=== PATIENT | female | born 1970 | race Caucasian/White ===

== ENCOUNTER 2019-06-01 13:11 | Emergency (ER) | payer BC ==
[2019-06-01 14:55] LABS: ANION GAP 12.4; CHLORIDE,CL 97 mmol/L (101-111); SODIUM,NA 137 mmol/L (135-145)
[2019-06-01] MEDS ORDERED: Ketorolac 30 MG/ML SDV IM ONE (15:23)
--- NOTE | 2019-06-01 15:25 | EDM.PDOC ---
Scribed by Velma Connell 06/01/19 1525 for Aaron Lyle NP ED HPI GENERAL MEDICAL PROBLEM - General Chief Complaint: Genitourinary Problem Stated Complaint: POSSIBLE KIDNEY INFECTION/STONES Time Seen by Provider: 06/01/19 14:17 Source of Information: Reports: Patient, RN, RN Notes Reviewed History Limitations: Reports: No Limitations - History of Present Illness INITIAL COMMENTS - FREE TEXT/NARRATIVE: Patient is a 48-year-old female who presents to ED with complaints of right flank pain, intermittent fever, nausea and vomiting x1 week. Patient reports a history of kidney stones and neurogenic bladder. She denies any hematuria, urgency, frequency or dysuria. She has been taking Zofran for nausea with relief. Fever is being controlled with Ibuprofen every 6 hours. She reports decrease in appetite due to nausea. She reports shortness of breath with flank pain. Onset: Gradual Duration: Getting Worse Location: Reports: Generalized Quality: Reports: Ache Severity: Moderate Improves with: Reports: None Worsens with: Reports: None Associated Symptoms: Reports: No Other Symptoms - Related Data Allergies Allergy/AdvReac Type Severity Reaction Status Date / Time ceftriaxone [From Rocephin] Allergy Hives Verified 06/01/19 13:54 Sulfa (Sulfonamide Allergy Hives Verified 06/01/19 13:54 Antibiotics) Home Meds: Home Meds DULoxetine HCl [Duloxetine HCl] 100 mg PO DAILY 06/01/19 [History] Levothyroxine Sodium [Synthroid] 100 mcg PO DAILY 06/01/19 [History] Propranolol HCl 40 mg PO DAILY 06/01/19 [History] hydroCHLOROthiazide [Hydrochlorothiazide] 25 mg PO DAILY 06/01/19 [History] Past Medical History HEENT History: Reports: Impaired Vision Cardiovascular History: Reports: Hypertension Musculoskeletal History: Reports: Fibromyalgia Neurological History: Reports: Migraines Psychiatric History: Reports: Depression Endocrine/Metabolic History: Reports: Hypothyroidism - Past Surgical History Female Surgical History: Reports: Hysterectomy, Other (See Below) Other Female Surgeries/Procedures: Bladder sling, mesh was placed- then recalled by FDA. "They were only able to get some of the mesh removed when they sutured up they sewed my nerve ending into the incision." Social & Family History - Tobacco Use Smoking Status *Q: Never Smoker - Caffeine Use Caffeine Use: Reports: Coffee - Recreational Drug Use Recreational Drug Use: No Other Recreational Drug Type: Has a medical marijuana card but has not filled it. ED ROS GENERAL - Review of Systems Review Of Systems: Comprehensive ROS is negative, except as noted in HPI. ED EXAM, RENAL/ - Physical Exam Exam: See Below Exam Limited By: No Limitations General Appearance: Alert, WD/WN, No Apparent Distress Eye Exam: Bilateral Eye: Normal Inspection Ears: Normal External Exam, Normal Canal, Hearing Grossly Normal, Normal TMs Nose: Normal Inspection, Normal Mucosa, No Blood Throat/Mouth: Normal Inspection, Normal Lips, Normal Teeth, Normal Gums, Normal Oropharynx, Normal Voice, No Airway Compromise Head: Atraumatic, Normocephalic Neck: Normal Inspection, Supple, Non-Tender, Full Range of Motion Respiratory/Chest: No Respiratory Distress, Lungs Clear, Normal Breath Sounds, No Accessory Muscle Use, Chest Non-Tender Cardiovascular: Normal Peripheral Pulses, Regular Rate, Rhythm, No Edema, No Gallop, No JVD, No Murmur, No Rub GI/Abdominal: Normal Bowel Sounds, Soft, Other (right CVA tenderness. ) (Female) Exam: Deferred Rectal (Female) Exam: Deferred Back Exam: Normal Inspection, CVA Tenderness (R). No: CVA Tenderness (L) Extremities: Normal Inspection, Normal Range of Motion, Non-Tender, Normal Capillary Refill, No Pedal Edema Neurological: Alert, Oriented, CN II-XII Intact, Normal Cognition, Normal Gait Psychiatric: Normal Affect, Normal Mood Skin Exam: Warm, Dry, Intact, Normal Color, No Rash Lymphatic: No Adenopathy Course - Vital Signs Last Recorded V/S: Last Vital Signs Temp 97.1 F 06/01/19 13:39 Pulse 65 06/01/19 13:39 Resp 18 06/01/19 13:39 BP 111/70 06/01/19 13:39 Pulse Ox 100 06/01/19 13:39 - Orders/Labs/Meds Orders: Active Orders 24 hr Category Date Time Status CULTURE URINE [RM] Stat Lab 06/01/19 13:34 Received Labs: Laboratory Tests 06/01/19 06/01/19 06/01/19 Range/Units 13:34 14:28 14:28 WBC 11.1 H (5.0-10.0) 10^3/uL RBC 4.57 (4.2-5.4) 10^6/uL Hgb 14.0 (12.0-16.0) g/dL Hct 42.2 (37.0-47.0) % MCV 92.3 (80-100) fL MCH 30.6 (27.0-34.0) pg MCHC 33.2 (33.0-35.0) g/dL Plt Count 340 (150-450) 10^3/uL Neut % (Auto) 65.5 (42.2-75.2) % Lymph % (Auto) 22.8 (20.5-50.1) % [place] % (Auto) 9.1 H (2-8) % Eos % (Auto) 2.1 (1.0-3.0) % Baso % (Auto) 0.5 (0.0-1.0) % Sodium 137 (135-145) mmol/L Potassium 3.4 L (3.6-5.0) mmol/L Chloride 97 L (101-111) mmol/L Carbon Dioxide 31.0 (21.0-31.0) mmol/L Anion Gap 12.4 BUN 18 (7-18) mg/dL Creatinine 0.9 (0.6-1.3) mg/dL Est Cr Clr Drug Dosing 66.01 mL/min Estimated GFR (MDRD) > 60 BUN/Creatinine Ratio 20.00 Glucose 98 (74-105) mg/dL Calcium 8.9 (8.4-10.2) mg/dl Total Bilirubin 0.8 (0.2-1.0) mg/dL AST 16 (10-42) IU/L ALT 14 (10-60) IU/L Alkaline Phosphatase 94 (42-121) IU/L Total Protein 7.6 (6.7-8.2) g/dl Albumin 4.0 (3.2-5.5) g/dl Globulin 3.6 Albumin/Globulin Ratio 1.11 Urine Color Yellow (YELLOW) Urine Appearance Slightly cloudy (CLEAR) Urine pH 5.5 (5.0-9.0) Ur Specific [place] 1.025 (1.005-1.030) Urine Protein Negative (NEGATIVE) Urine Glucose (UA) Negative (NEGATIVE) Urine Ketones Negative (NEGATIVE) Urine Occult Blood Negative (NEGATIVE) Urine Nitrite Negative (NEGATIVE) Urine Bilirubin Negative (NEGATIVE) Urine Urobilinogen 0.2 (0.2-1.0) mg/dL Ur Leukocyte Esterase Trace H (NEGATIVE) Urine RBC 10-20 H /HPF Urine WBC 5-10 H (0-5/HPF) /HPF Ur Epithelial Cells Moderate H (NOT SEEN) /HPF Amorphous Sediment Moderate H (NOT SEEN) /HPF Urine Bacteria Few (0-FEW/HPF) /HPF Urine Mucus Moderate H (NOT SEEN) /LPF Meds: Medications Discontinued Medications Generic Name Dose Route Start Last Admin Trade Name Javier PRN Reason Stop Dose Admin Ketorolac Tromethamine 30 mg 06/01/19 15:23 Toradol IM 06/01/19 15:24 ONETIME ONE - Re-Assessments/Exams Free Text/Narrative Re-Assessment/Exam: Exam and lab findings reviewed with patient. Encouraged to push fluids. RX for Cipro sent home with patient. Follow up with PCP. Toradol administered in the ER. Departure - Departure Time of Disposition: 15:23 Disposition: Home, Self-Care 01 Condition: Good Clinical Impression: UTI, Urinary tract infectious disease - Discharge Information Instructions: Urinary Tract Infection, Adult, [id number] Forms: ED Department Discharge Additional Instructions: Encouraged to push fluids. RX for Cipro sent home with patient. Follow up with PCP. Sepsis Event Note - Evaluation Sepsis Screening Result: No Definite Risk - Focused Exam Vital Signs: Vital Signs Temp Pulse Resp BP Pulse Ox 06/01/19 13:39 97.1 F 65 18 111/70 100 Date Exam was Performed: 06/01/19 Time Exam was Performed: 15:25 - My Orders Last 24 Hours: My Active Orders 06/01/19 13:34 CULTURE URINE [RM] Stat - Assessment/Plan Last 24 Hours: My Active Orders 06/01/19 13:34 CULTURE URINE [RM] Stat I have read and agree with the documentation that has been completed regarding this visit. By signing this record, I attest that the documentation was completed in my physical presence and is an accurate record of the encounter.
== END 2019-06-01 15:38 | disposition home or self-care (01) ==
LOC: DL.ED 13:11
DX: N39.0 Urinary tract infection, site not specified (principal); I10 Essential (primary) hypertension; F32.9 Major depressive disorder, single episode, unspecified; E03.9 Hypothyroidism, unspecified; Z79.899 Other long term (current) drug therapy; Z88.2 Allergy status to sulfonamides; Z88.8 Allergy status to other drugs, medicaments and biological substances
CPT/HCPCS: 36415; 80053; 81001; 85025; 87086; 96372; 99284; J1885

== ENCOUNTER 2019-11-06 19:17 | Emergency (ER) | payer BC ==
[2019-11-06 20:15] LABS: ANION GAP 13.2 mEq/L (7-13); CHLORIDE,CL 101 mmol/L (98-107); SODIUM,NA 138 mmol/L (136-145)
[2019-11-06] MEDS ORDERED: Potassium Chloride 10 MEQ Tab.ER PO ONE (20:28)
--- NOTE | 2019-11-06 20:28 | EDM.PDOC ---
ED HPI GENERAL MEDICAL PROBLEM - General Chief Complaint: Cardiovascular Problem Stated Complaint: SOB/HEART PALPITATIONS/ANXIETY Time Seen by Provider: 11/06/19 20:28 Source of Information: Reports: Patient History Limitations: Reports: No Limitations - History of Present Illness INITIAL COMMENTS - FREE TEXT/NARRATIVE: been under some stress and developed headache and heart palpitation today. last time her potassium was low was taking it but D/C when level returned to normal. Generalized Pain Score (Numeric/FACES): 5 - Related Data Allergies Allergy/AdvReac Type Severity Reaction Status Date / Time ceftriaxone [From Rocephin] Allergy Hives Verified 11/06/19 19:22 Sulfa (Sulfonamide Allergy Hives Verified 11/06/19 19:22 Antibiotics) Home Meds: Home Meds DULoxetine HCl [Duloxetine HCl] 120 mg PO DAILY 06/01/19 [History] Levothyroxine Sodium [Synthroid] 100 mcg PO DAILY 06/01/19 [History] hydroCHLOROthiazide [Hydrochlorothiazide] 25 mg PO DAILY 06/01/19 [History] Fremanezumab-Vfrm [Ajovy Autoinjector] 1 injection SQ Q30D 11/06/19 [History] Past Medical History HEENT History: Reports: Impaired Vision Cardiovascular History: Reports: Hypertension Musculoskeletal History: Reports: Fibromyalgia Neurological History: Reports: Head Trauma, Migraines Psychiatric History: Reports: Anxiety, Depression, Panic Attack Endocrine/Metabolic History: Reports: Hypothyroidism - Past Surgical History Female Surgical History: Reports: Hysterectomy, Other (See Below) Other Female Surgeries/Procedures: Bladder sling, mesh was placed- then recalled by FDA. "They were only able to get some of the mesh removed when they sutured up they sewed my nerve ending into the incision." Social & Family History - Family History Family Medical History: Noncontributory - Tobacco Use Smoking Status *Q: Unknown Ever Smoked Second Hand Smoke Exposure: No - Caffeine Use Caffeine Use: Reports: Coffee, Soda - Recreational Drug Use Recreational Drug Use: No ED ROS GENERAL - Review of Systems Review Of Systems: Comprehensive ROS is negative, except as noted in HPI. ED EXAM, GENERAL - Physical Exam Exam: See Below Exam Limited By: No Limitations General Appearance: Alert, WD/WN, Anxious, Mild Distress Eye Exam: Bilateral Eye: PERRL (ER @ 4mm) Ears: Hearing Grossly Normal Throat/Mouth: Normal Voice, No Airway Compromise Head: Atraumatic Neck: Non-Tender, Full Range of Motion Respiratory/Chest: No Respiratory Distress Cardiovascular: Regular Rate, Rhythm GI/Abdominal: Soft, Non-Tender Neurological: Alert, Oriented, Normal Cognition, Normal Gait, No Motor/Sensory Deficits Psychiatric: Anxious Skin Exam: Warm, Dry, Normal Color Lymphatic: No Adenopathy Course - Vital Signs Last Recorded V/S: Last Vital Signs Temp 37.4 C 11/06/19 19:32 Pulse 104 H 11/06/19 19:32 Resp 18 11/06/19 19:32 BP 141/82 H 11/06/19 19:32 Pulse Ox 100 11/06/19 19:32 - Orders/Labs/Meds Orders: Active Orders 24 hr Category Date Time Status Potassium Chloride [Klor-Con 10] Med 11/06/19 20:28 Once 40 meq PO ONETIME ONE Medication Orders Potassium Chloride (Klor-Con 10) 40 meq PO ONETIME ONE Stop: 11/06/19 20:29 Labs: Laboratory Tests 11/06/19 11/06/19 Range/Units 19:47 19:47 WBC 7.8 (5.0-10.0) 10^3/uL RBC 4.78 (4.2-5.4) 10^6/uL Hgb 14.1 (12.0-16.0) g/dL Hct 42.9 (37.0-47.0) % MCV 89.7 (80-100) fL MCH 29.5 (27.0-34.0) pg MCHC 32.9 L (33.0-35.0) g/dL Plt Count 269 (150-450) 10^3/uL Neut % (Auto) 67.7 (42.2-75.2) % Lymph % (Auto) 22.9 (20.5-50.1) % [place] % (Auto) 7.6 (2-8) % Eos % (Auto) 1.3 (1.0-3.0) % Baso % (Auto) 0.5 (0.0-1.0) % Sodium 138 (136-145) mmol/L Potassium 3.2 L (3.5-5.1) mmol/L Chloride 101 (98-107) mmol/L Carbon Dioxide 27 (21-32) mmol/L Anion Gap 13.2 H (7-13) mEq/L BUN 16 (7-18) mg/dL Creatinine 1.02 (0.55-1.02) mg/dL Est Cr Clr Drug Dosing 64.88 mL/min Estimated GFR (MDRD) 58 BUN/Creatinine Ratio 15.7 (No establ ref range) Glucose 100 H (74-99) mg/dL Calcium 8.7 (8.5-10.1) mg/dL Total Bilirubin 0.5 (0.2-1.0) mg/dL AST 15 (15-37) U/L ALT 17 (14-59) U/L Alkaline Phosphatase 106 (46-116) U/L Troponin I < 0.017 (0.000-0.056) ng/mL Total Protein 7.6 (6.4-8.2) g/dL Albumin 3.8 (3.4-5.0) g/dL Globulin 3.8 Albumin/Globulin Ratio 1.0 Meds: Medications Generic Name Dose Route Start Last Admin Trade Name Freq PRN Reason Stop Dose Admin Potassium Chloride 40 meq 11/06/19 20:28 Klor-Con 10 PO 11/06/19 20:29 ONETIME ONE - Re-Assessments/Exams Free Text/Narrative Re-Assessment/Exam: 11/06/19 20:31 results discussed with pt who is feeling much better and relaxed presently. Departure - Departure Time of Disposition: 20:31 Disposition: Home, Self-Care 01 Condition: Good Clinical Impression: Chest pain, atypical, Situational anxiety, Hypokalemia Instructions: Potassium Content of Foods Forms: ED Department Discharge Additional Instructions: 1) rest 2) follow up at clinic Sepsis Event Note (ED) - Evaluation Sepsis Screening Result: No Definite Risk - Focused Exam Vital Signs: Vital Signs Temp Pulse Resp BP Pulse Ox 11/06/19 19:32 37.4 C 104 H 18 141/82 H 100 - My Orders Last 24 Hours: My Active Orders 11/06/19 20:28 Potassium Chloride [Klor-Con 10] 40 meq PO ONETIME ONE - Assessment/Plan Last 24 Hours: My Active Orders 11/06/19 20:28 Potassium Chloride [Klor-Con 10] 40 meq PO ONETIME ONE
== END 2019-11-06 20:44 | disposition home or self-care (01) ==
LOC: DL.ED 19:17
DX: F41.9 Anxiety disorder, unspecified (principal); E87.6 Hypokalemia; I10 Essential (primary) hypertension; E03.9 Hypothyroidism, unspecified; F32.9 Major depressive disorder, single episode, unspecified; Z88.1 Allergy status to other antibiotic agents; Z88.2 Allergy status to sulfonamides; Z79.899 Other long term (current) drug therapy
CPT/HCPCS: 36415; 80053; 84484; 85025; 99283; 99284; A9270

== ENCOUNTER 2019-11-28 12:24 | Emergency (ER) | payer BC ==
--- NOTE | 2019-11-28 13:24 | EDM.PDOC ---
ED HPI GENERAL MEDICAL PROBLEM - General Chief Complaint: Flank Pain Stated Complaint: FELL AND LANDED ON TREE STUMP/PEEING BLOOD Time Seen by Provider: 11/28/19 12:48 Source of Information: Reports: Patient, RN, RN Notes Reviewed History Limitations: Reports: No Limitations - History of Present Illness INITIAL COMMENTS - FREE TEXT/NARRATIVE: Patient presents to ER with complaint of left flank pain. States she was standing on a 5 gallon pail which fell over, and she fell hitting a stump and landing on the pavement. Patient denies hitting her head or getting knocked out. Admits to bruises and ecchymosis to the left flank as well as the right leg. Patient states she began urinating blood shortly after that. Patient admits to chronic fatigue, chronic pain, chronic migraine for past medical history. Onset: Today, Sudden Left Flank Pain Score (Numeric/FACES): 8 - Related Data Allergies Allergy/AdvReac Type Severity Reaction Status Date / Time ceftriaxone [From Rocephin] Allergy Hives Verified 11/28/19 12:37 Sulfa (Sulfonamide Allergy Hives Verified 11/28/19 12:37 Antibiotics) Home Meds: Home Meds DULoxetine HCl [Duloxetine HCl] 120 mg PO DAILY 06/01/19 [History] Levothyroxine Sodium [Synthroid] 100 mcg PO DAILY 06/01/19 [History] hydroCHLOROthiazide [Hydrochlorothiazide] 25 mg PO DAILY 06/01/19 [History] Fremanezumab-Vfrm [Ajovy Autoinjector] 1 injection SQ Q30D 11/06/19 [History] Lubiprostone [Amitiza] 24 mcg PO DAILY 11/28/19 [History] Past Medical History HEENT History: Reports: Impaired Vision Cardiovascular History: Reports: Hypertension Respiratory History: Reports: None Gastrointestinal History: Reports: None Genitourinary History: Reports: None 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 Musculoskeletal History: Reports: Fibromyalgia Neurological History: Reports: Head Trauma, Migraines Psychiatric History: Reports: Anxiety, Depression, Panic Attack Endocrine/Metabolic History: Reports: Hypothyroidism Hematologic History: Reports: None Immunologic History: Reports: None Oncologic (Cancer) History: Reports: None Dermatologic History: Reports: None - Infectious Disease History Infectious Disease History: Reports: None - Past Surgical History Head Surgeries/Procedures: Reports: None Female Surgical History: Reports: Hysterectomy, Other (See Below) Other Female Surgeries/Procedures: Bladder sling, mesh was placed- then recalled by FDA. "They were only able to get some of the mesh removed when they sutured up they sewed my nerve ending into the incision." Social & Family History - Family History Family Medical History: Noncontributory - Tobacco Use Smoking Status *Q: Never Smoker Second Hand Smoke Exposure: No - Caffeine Use Caffeine Use: Reports: Coffee - Recreational Drug Use Recreational Drug Use: No ED ROS GENERAL - Review of Systems Review Of Systems: Comprehensive ROS is negative, except as noted in HPI. ED EXAM, RENAL/ - Physical Exam Exam: See Below Exam Limited By: No Limitations General Appearance: Alert, WD/WN, No Apparent Distress Eye Exam: Bilateral Eye: EOMI, Normal Inspection Ears: Normal External Exam, Hearing Grossly Normal Nose: Normal Inspection Throat/Mouth: Normal Inspection, Normal Voice, No Airway Compromise Head: Atraumatic, Normocephalic Neck: Normal Inspection, Supple, Non-Tender, Full Range of Motion Respiratory/Chest: No Respiratory Distress, Lungs Clear, Normal Breath Sounds, No Accessory Muscle Use, Chest Non-Tender Cardiovascular: Normal Peripheral Pulses, Regular Rate, Rhythm, No Edema, No Gallop, No JVD, No Murmur, No Rub GI/Abdominal: Normal Bowel Sounds, Soft, Non-Tender (Female) Exam: Deferred Rectal (Female) Exam: Deferred Back Exam: Normal Inspection, CVA Tenderness (L), Decreased Range of Motion Extremities: Normal Inspection, Normal Range of Motion, Non-Tender, No Pedal Edema, Normal Capillary Refill Neurological: Alert, Oriented, CN II-XII Intact, Normal Cognition, Normal Gait, Normal Reflexes, No Motor/Sensory Deficits Psychiatric: Normal Affect, Normal Mood Skin Exam: Warm, Dry, Ecchymosis (left flank, right leg), Other (Abrasion left flank, right leg) Lymphatic: No Adenopathy Course - Vital Signs Last Recorded V/S: Last Vital Signs Temp 98.0 F 11/28/19 14:53 Pulse 62 11/28/19 14:53 Resp 16 11/28/19 14:53 BP 122/61 11/28/19 14:53 Pulse Ox 100 11/28/19 14:53 - Orders/Labs/Meds Orders: Active Orders 24 hr Category Date Time Status CULTURE URINE [RM] Stat Lab 11/28/19 12:45 Received Labs: Laboratory Tests 11/28/19 11/28/19 11/28/19 Range/Units 12:45 13:09 13:09 WBC 8.8 (5.0-10.0) 10^3/uL RBC 4.42 (4.2-5.4) 10^6/uL Hgb 13.0 (12.0-16.0) g/dL Hct 40.4 (37.0-47.0) % MCV 91.4 (80-100) fL MCH 29.4 (27.0-34.0) pg MCHC 32.2 L (33.0-35.0) g/dL Plt Count 283 (150-450) 10^3/uL Neut % (Auto) 64.1 (42.2-75.2) % Lymph % (Auto) 25.0 (20.5-50.1) % [place] % (Auto) 7.9 (2-8) % Eos % (Auto) 2.5 (1.0-3.0) % Baso % (Auto) 0.5 (0.0-1.0) % Sodium 138 (136-145) mmol/L Potassium 3.5 (3.5-5.1) mmol/L Chloride 99 (98-107) mmol/L Carbon Dioxide 31 (21-32) mmol/L Anion Gap 11.5 (7-13) mEq/L BUN 20 H (7-18) mg/dL Creatinine 0.95 (0.55-1.02) mg/dL Est Cr Clr Drug Dosing 67.06 mL/min Estimated GFR (MDRD) > 60 BUN/Creatinine Ratio 21.1 (No establ ref range) Glucose 87 (74-99) mg/dL Calcium 8.4 L (8.5-10.1) mg/dL Total Bilirubin 0.5 (0.2-1.0) mg/dL AST 16 (15-37) U/L ALT 21 (14-59) U/L Alkaline Phosphatase 101 (46-116) U/L Total Protein 7.6 (6.4-8.2) g/dL Albumin 3.8 (3.4-5.0) g/dL Globulin 3.8 Albumin/Globulin Ratio 1.0 Urine Color Dark yellow (YELLOW) Urine Appearance Slightly cloudy (CLEAR) Urine pH 6.0 (5.0-9.0) Ur Specific [place] 1.025 (1.005-1.030) Urine Protein Negative (NEGATIVE) Urine Glucose (UA) Negative (NEGATIVE) Urine Ketones Negative (NEGATIVE) Urine Occult Blood Trace-intact H (NEGATIVE) Urine Nitrite Negative (NEGATIVE) Urine Bilirubin Negative (NEGATIVE) Urine Urobilinogen 0.2 (0.2-1.0) mg/dL Ur Leukocyte Esterase Trace H (NEGATIVE) Urine RBC 5-10 H /HPF Urine WBC 10-20 H (0-5/HPF) /HPF Ur Epithelial Cells Few (NOT SEEN) /HPF Urine Bacteria Few (0-FEW/HPF) /HPF Urine Mucus Few H (NOT SEEN) /LPF Meds: Medications Discontinued Medications Generic Name Dose Route Start Last Admin Trade Name Freq PRN Reason Stop Dose Admin Iopamidol 100 ml 11/28/19 13:44 11/28/19 14:24 Isovue-300 (61%) IVPUSH 11/28/19 13:45 100 ml ONETIME ONE Administration - Radiology Interpretation Free Text/Narrative:: CT Abdomen/Pelvis wo contrast: Multiple surgeries. No sign of hematoma, renal laceration, or intraperitoneal abnormality. See rad report Departure - Departure Time of Disposition: 15:03 Disposition: Home, Self-Care 01 Condition: Fair Clinical Impression: Contusion Qualifiers: Encounter type: initial encounter Contusion area: lower back Qualified Code(s): S30.0XXA - Contusion of lower back and pelvis, initial encounter UTI (urinary tract infection) Qualifiers: Urinary tract infection type: acute cystitis Hematuria presence: with hematuria Qualified Code(s): N30.01 - Acute cystitis with hematuria - Discharge Information *PRESCRIPTION DRUG MONITORING PROGRAM REVIEWED*: No *COPY OF PRESCRIPTION DRUG MONITORING REPORT IN PATIENT KEANU: No Instructions: Antibiotic Medicine, Adult, [id number], Urinary Tract Infection, Adult, [id number], Contusion, [id number] Forms: ED Department Discharge Additional Instructions: Rx: Macrobid May use Tylenol and/or ibuprofen as directed for pain May use heat and ice, alternating to the area as tolerated Follow-up with your primary care provider Sepsis Event Note (ED) - Evaluation Sepsis Screening Result: No Definite Risk - Focused Exam Vital Signs: Vital Signs Temp Pulse Resp BP Pulse Ox 11/28/19 14:53 98.0 F 62 16 122/61 100 11/28/19 12:38 98.6 F 70 16 133/76 100 - My Orders Last 24 Hours: My Active Orders 11/28/19 12:45 CULTURE URINE [] Stat - Assessment/Plan Last 24 Hours: My Active Orders 11/28/19 12:45 CULTURE URINE [] Stat
[2019-11-28 13:38] LABS: ANION GAP 11.5 mEq/L (7-13); CHLORIDE,CL 99 mmol/L (98-107); SODIUM,NA 138 mmol/L (136-145)
[2019-11-28] MEDS ORDERED: Iopamidol 612 MG/ML 100 ML Bottle IVPUSH ONE (13:44)
--- NOTE | 2019-11-28 14:41 | CT ---
EXAMINATION: Abdomen Pelvis w Cont SEX: Female AGE: 49 years CLINICAL HISTORY: 49-year-old 212 pound female who injured her left flank "falling onto stone" last night. Patient is had gastric bypass surgery, hysterectomy, appendectomy and cholecystectomy. Hematuria. Scan technique: Volume acquisition of data from the lower chest, abdomen and pelvis obtained without oral contrast but during the intravenous administration 100 cc nonionic Isovue contrast 3 cc/s via injector while lying supine on the Siemens multislice scanner [place], [place]. All data archived in the PACS system for storage, reformatting axial/sagittal/coronal planes and study. Interpretation: 1. Evidence of multiple surgeries including cholecystectomy, gastric bypass and hysterectomy. 2. No sign of skin laceration, subcutaneous hematoma (specifically, none region of "bruise"), retroperitoneal or intraperitoneal hematoma. 3. No lower rib fracture, underlying lung contusion, atelectasis, dependent pleural effusion or pneumothorax. 4. Marginal spondylosis but lumbar spine otherwise unremarkable i.e. no fractures or dislocation. Normal caliber lower thoracic/abdominal aorta. No aneurysm or dissection. 5. Normal reniform size, axis and location bilaterally. No sign of renal laceration or perinephric hematoma. No renal cortical mass lesion, nephrolithiasis or obstructive uropathy. Symmetrically distended bladder. 6. No pelvic or abdominal mass lesion, signs of mechanical bowel obstruction, ascites or free intraperitoneal air. 7. Liver, spleen, pancreas and adrenal glands unremarkable. CONCLUSION: Multiple surgeries. No sign of hematoma, renal laceration or intraperitoneal abnormality.
== END 2019-11-28 15:02 | disposition home or self-care (01) ==
LOC: DL.ED 12:24
DX: S30.0XXA Contusion of lower back and pelvis, initial encounter (principal); S30.1XXA Contusion of abdominal wall, initial encounter; S80.11XA Contusion of right lower leg, initial encounter; N30.01 Acute cystitis with hematuria; I10 Essential (primary) hypertension; F41.9 Anxiety disorder, unspecified; F32.9 Major depressive disorder, single episode, unspecified; E03.9 Hypothyroidism, unspecified; Z88.1 Allergy status to other antibiotic agents; Z88.2 Allergy status to sulfonamides; Z79.899 Other long term (current) drug therapy; W17.89XA Other fall from one level to another, initial encounter
CPT/HCPCS: 36415; 74177; 80053; 81001; 85025; 87086; 99284; Q9967

== ENCOUNTER 2021-02-14 10:41 | Emergency (ER) | payer MEDICARE, OTHER ==
--- NOTE | 2021-02-14 12:14 | EDM.PDOC ---
ED HPI GENERAL MEDICAL PROBLEM - General Chief Complaint: Lower Extremity Injury/Pain Stated Complaint: [id number] FELL AND RIGHT ANKLE IS SWOLLEN Time Seen by Provider: 02/14/21 12:14 Source of Information: Reports: Patient, RN, RN Notes Reviewed History Limitations: Reports: No Limitations - History of Present Illness INITIAL COMMENTS - FREE TEXT/NARRATIVE: Pt presents to ER with c/o right ankle pain sustained last evening when she slipped and rolled her ankle while feeding her chickens and ducks. Denies any other injury. Today pt could barely stand the pain of wt bearing, so she came to the ER. 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 Right Ankle Pain Score (Numeric/FACES): 5 - Related Data Allergies Allergy/AdvReac Type Severity Reaction Status Date / Time ceftriaxone [From Rocephin] Allergy Hives Verified 11/28/19 12:37 Sulfa (Sulfonamide Allergy Hives Verified 11/28/19 12:37 Antibiotics) Home Meds: Home Meds DULoxetine HCl [Duloxetine HCl] 120 mg PO DAILY 06/01/19 [History] Levothyroxine Sodium [Synthroid] 100 mcg PO DAILY 06/01/19 [History] hydroCHLOROthiazide [Hydrochlorothiazide] 25 mg PO DAILY 06/01/19 [History] Fremanezumab-Vfrm [Ajovy Autoinjector] 1 injection SQ Q30D 11/06/19 [History] Lubiprostone [Amitiza] 24 mcg PO DAILY 11/28/19 [History] Past Medical History HEENT History: Reports: Impaired Vision Cardiovascular History: Reports: Hypertension Respiratory History: Reports: None Gastrointestinal History: Reports: None Genitourinary History: Reports: None PRODUCTION OPERATOR 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: Reports: None Musculoskeletal History: Reports: Fibromyalgia Neurological History: Reports: Head Trauma, Migraines Psychiatric History: Reports: Anxiety, Depression, Panic Attack Endocrine/Metabolic History: Reports: Hypothyroidism Hematologic History: Reports: None Immunologic History: Reports: None Oncologic (Cancer) History: Reports: None Dermatologic History: Reports: None - Infectious Disease History Infectious Disease History: Reports: None - Past Surgical History Head Surgeries/Procedures: Reports: None Female Surgical History: Reports: Hysterectomy, Other (See Below) Other Female Surgeries/Procedures: Bladder sling, mesh was placed- then recalled by FDA. "They were only able to get some of the mesh removed when they sutured up they sewed my nerve ending into the incision." Social & Family History - Family History Family Medical History: No Pertinent Family History - Tobacco Use Tobacco Use Status *Q: Unknown Ever Used Tobacco - Caffeine Use Caffeine Use: Reports: Coffee - Recreational Drug Use Recreational Drug Use: No - Living Situation & Occupation Occupation: Disabled Review of Systems - Review of Systems Review Of Systems: Comprehensive ROS is negative, except as noted in HPI. ED EXAM, GENERAL - Physical Exam Exam: See Below Exam Limited By: No Limitations General Appearance: Alert, WD/WN, No Apparent Distress Respiratory/Chest: No Respiratory Distress Cardiovascular: Normal Peripheral Pulses Extremities: No Pedal Edema, Normal Capillary Refill, Joint Swelling (Right lateral ankle with tenderness and bruising), Limited Range of Motion (Rt ankle due to pain). No: Gloria's Sign, Increased Warmth, Mottled, Pallor, Redness Neurological: Alert, Oriented, No Motor/Sensory Deficits Psychiatric: Normal Mood Skin Exam: Warm, Dry, Intact ED TRAUMA EXTREMITY PROCEDURES - Splinting Right Lower Extremity Splint Site: Rt ankle Pre-Procedure NV Status: Normal Post-Procedure NV Status: Normal Splint Material: Boot Orthotic Splint Design: Other Applied & Form Fitted By: Nurse Provider Post-Splint Application NV Check: NV Status Normal, Good Position Complications: No Course - Vital Signs Last Recorded V/S: Last Vital Signs Temp 98.6 F 02/14/21 11:36 Pulse 81 02/14/21 11:36 Resp 14 02/14/21 11:36 BP 136/85 02/14/21 11:36 Pulse Ox 99 02/14/21 11:36 - Orders/Labs/Meds Orders: Active Orders 24 hr Category Date Time Status DME for Discharge [COMM] Routine Oth 02/14/21 12:20 Ordered DME for Discharge [COMM] Routine Oth 02/14/21 12:21 Ordered Departure - Departure Time of Disposition: 12:32 Disposition: Home, Self-Care 01 Condition: Good Clinical Impression: Closed traumatic nondisplaced fracture of distal end of right fibula Qualifiers: Encounter type: initial encounter Qualified Code(s): S82.831A - Other fracture of upper and lower end of right fibula, initial encounter for closed fracture - Discharge Information *PRESCRIPTION DRUG MONITORING PROGRAM REVIEWED*: Not Applicable *COPY OF PRESCRIPTION DRUG MONITORING REPORT IN PATIENT KEANU: Not Applicable Instructions: Nondisplaced Fibular Ankle Fracture Treated With Immobilization Forms: ED Department Discharge Additional Instructions: Rest and elevate right ankle to reduce pain and swelling. Use Tylenol as needed for pain. Follow directions on label for dosing and precautions. Use crutches to be non-weight bearing on the right foot. Wear the splint boot, removing only to shower and sleep. [facility] with [facility] Call [phone] today to schedule an appointment. Inform the senior electronics design engineer that your x-ray has been pushed to the PACs system for their viewing. Sepsis Event Note (ED) - Evaluation Sepsis Screening Result: No Definite Risk - Focused Exam Vital Signs: Vital Signs Temp Pulse Resp BP Pulse Ox 02/14/21 11:36 98.6 F 81 14 136/85 99 - My Orders Last 24 Hours: My Active Orders 02/14/21 12:20 DME for Discharge [COMM] Routine 02/14/21 12:21 DME for Discharge [COMM] Routine - Assessment/Plan Last 24 Hours: My Active Orders 02/14/21 12:20 DME for Discharge [COMM] Routine 02/14/21 12:21 DME for Discharge [COMM] Routine
--- NOTE | 2021-02-14 12:17 | CR ---
EXAMINATION: Ankle Min 3V Rt SEX: Female AGE: 50 years CLINICAL HISTORY: 50-year-old female swelling right ankle. Interpretation: Abnormal. Nondisplaced fracture. 1. Large ankle joint effusion and pronounced asymmetric soft tissue swelling over the lateral malleolus. 2. Underlying transverse, nondisplaced, fracture line across the lateral malleolus distal right fibula. 3. Isolated ipsilateral tiny smoothly corticated os subfibulare. 4. Tibiotalar mortise joints symmetrically intact. No ankle joint dislocation. 5. No other fractures right ankle. 6. No foreign bodies.
== END 2021-02-14 12:52 | disposition home or self-care (01) ==
LOC: DL.ED 10:41
DX: S82.831A Other fracture of upper and lower end of right fibula, initial encounter for closed fracture (principal); I10 Essential (primary) hypertension; E03.9 Hypothyroidism, unspecified; Z88.1 Allergy status to other antibiotic agents; Z88.2 Allergy status to sulfonamides; Z79.899 Other long term (current) drug therapy; X50.1XXA Overexertion from prolonged static or awkward postures, initial encounter
CPT/HCPCS: 73610-RT; 99283

== ENCOUNTER 2022-06-02 11:04 | Emergency (ER) | payer OTHER, MEDICARE ==
[2022-06-02] MEDS ORDERED: Sodium Chloride 0.9% 10 ML Syringe FLUSH PRN (11:17)
[2022-06-02] MEDS ORDERED: Sodium Chloride 0.9% 1,000 ML IV ONE (11:42)
[2022-06-02 12:00] LABS: ANION GAP 9.9 mEq/L (7-13)
[2022-06-02] MEDS ORDERED: Ketorolac 30 MG/ML SDV IVPUSH ONE (12:14)
[2022-06-02] MEDS ORDERED: Acetaminophen 500 MG Tab PO ONE (12:14)
[2022-06-02] MEDS ORDERED: Iopamidol 612 MG/ML 100 ML Bottle IVPUSH ONE (12:51)
== END 2022-06-02 13:49 | disposition home or self-care (01) ==
LOC: DL.ED 11:04
DX: R07.9 Chest pain, unspecified (principal); I10 Essential (primary) hypertension; E03.9 Hypothyroidism, unspecified; Z88.1 Allergy status to other antibiotic agents; Z88.2 Allergy status to sulfonamides; Z79.899 Other long term (current) drug therapy; Z86.16 Personal history of COVID-19
CPT/HCPCS: 36415; 71045; 74178; 80053; 81001; 82150; 83605; 83690; 83735; 84484; 85025; 85610; 86140; 87086; 93005; 93010; 96361; 96374; 99284; 99285; A9270; J1885; J3490; J7030; Q9967

== ENCOUNTER 2024-06-14 12:25 | Emergency (ER) | payer MEDICARE, OTHER ==
[2024-06-14] MEDS: predniSONE 20 MG Tab PO ONE (12:49)
== END 2024-06-14 13:48 | disposition home or self-care (01) ==
LOC: DL.ED 12:25
DX: J11.1 Influenza due to unidentified influenza virus with other respiratory manifestations (principal); I10 Essential (primary) hypertension; E03.9 Hypothyroidism, unspecified; Z88.2 Allergy status to sulfonamides; Z88.8 Allergy status to other drugs, medicaments and biological substances; Z79.890 Hormone replacement therapy; Z79.899 Other long term (current) drug therapy; Z86.16 Personal history of COVID-19; Z90.49 Acquired absence of other specified parts of digestive tract; Z90.710 Acquired absence of both cervix and uterus
CPT/HCPCS: 71045; 87428; 99282; 99285; J7512

== ENCOUNTER 2024-06-20 13:51 | Emergency (ER) | payer MEDICARE ==
[2024-06-20 14:35] LABS: BASOPHILS PERCENT AUTO 0.4 % (0.0-1.0); EOSINOPHILS PERCENT AUTO 2.7 % (1.0-3.0); HEMATOCRIT 44.9 % (37.0-47.0); HEMOGLOBIN 14.5 g/dL (12.0-16.0); LYMPHOCYTES PERCENT AUTO 34.2 % (20.5-50.1); MEAN CORPUSCULAR HEMOGLOBIN 30.6 pg (27.0-34.0); MEAN CORPUSCULAR HGB CONC 32.3 g/dL (33.0-35.0); MEAN CORPUSCULAR VOLUME 94.7 fL (80-100); MONOCYTES PERCENT AUTO 8.5 % (2-8); NEUTROPHILS PERCENT AUTO 54.2 % (42.2-75.2); PLATELET COUNT,PLT 291 10^3/uL (150-450); RED BLOOD CELL COUNT 4.74 10^6/uL (4.2-5.4); WHITE BLOOD CELL COUNT,WBC 7.5 10^3/uL (5.0-10.0)
[2024-06-20 14:57] LABS: A/G RATIO 0.9; ALBUMIN 3.8 g/dL (3.4-5.0); ANION GAP 15.3 mEq/L (7-13); BILIRUBIN TOTAL 0.5 mg/dL (0.2-1.0); BUN/CREATININE RATIO 17.3 (No establ ref range); CALCIUM 9.5 mg/dL (8.5-10.1); CREATININE 0.81 mg/dL (0.55-1.02); EST CRCL DRUG DOSING (CG) 72.28 mL/min; POTASSIUM,K 4.3 mmol/L (3.5-5.1); PROTEIN TOTAL,TP 7.8 g/dL (6.4-8.2)
== END 2024-06-20 16:53 | disposition home or self-care (01) ==
LOC: DL.ED 13:51
DX: J11.1 Influenza due to unidentified influenza virus with other respiratory manifestations (principal); I10 Essential (primary) hypertension; E03.9 Hypothyroidism, unspecified; Z90.710 Acquired absence of both cervix and uterus; Z79.899 Other long term (current) drug therapy; Z90.49 Acquired absence of other specified parts of digestive tract; Z88.2 Allergy status to sulfonamides; Z88.1 Allergy status to other antibiotic agents
CPT/HCPCS: 36415; 71045; 80053; 84484; 85025; 85379; 93005; 99285

== ENCOUNTER 2025-03-20 11:36 | Emergency (ER) | payer MEDICARE ==
[2025-03-20] MEDS ORDERED: Sodium Chloride 0.9% 10 ML Syringe FLUSH PRN (12:02)
[2025-03-20 12:17] LABS: BASOPHILS PERCENT AUTO 0.4 % (0.0-1.0); EOSINOPHILS PERCENT AUTO 5.5 % (1.0-3.0); LYMPHOCYTES PERCENT AUTO 21.5 % (20.5-50.1); MONOCYTES PERCENT AUTO 8.9 % (2-8); NEUTROPHILS PERCENT AUTO 63.7 % (42.2-75.2); PLATELET COUNT,PLT 271 10^3/uL (150-450); RED BLOOD CELL COUNT 4.20 10^6/uL (4.2-5.4); WHITE BLOOD CELL COUNT,WBC 9.5 10^3/uL (5.0-10.0)
[2025-03-20 12:37] VITALS: BP 124/69; PULSE 73
[2025-03-20 12:41] LABS: B-TYPE NATRIURETIC PEPTIDE,BNP 20 pg/ml (0-100)
[2025-03-20 12:43] LABS: BLOOD UREA NITROGEN,BUN 24 mg/dL (7-18); CARBON DIOXIDE,CO2 30 mmol/L (21-32); CHLORIDE,CL 103 mmol/L (98-107); CREATININE 0.97 mg/dL (0.55-1.02); EST CRCL DRUG DOSING (CG) 59.66 mL/min; POTASSIUM,K 4.2 mmol/L (3.5-5.1); SODIUM,NA 142 mmol/L (136-145)
[2025-03-20 12:44] LABS: INR 0.9 (0.9-1.2)
[2025-03-20 12:49] LABS: GLUCOSE RANDOM 68 mg/dL (70-99)
[2025-03-20 12:50] LABS: ESTIMATED GFR 69 mL/min (>=60)
== END 2025-03-20 13:07 | disposition home or self-care (01) ==
LOC: DL.ED 11:36
DX: R07.89 Other chest pain (principal); I10 Essential (primary) hypertension; J45.909 Unspecified asthma, uncomplicated; E03.9 Hypothyroidism, unspecified; Z86.16 Personal history of COVID-19; Z90.49 Acquired absence of other specified parts of digestive tract; Z88.2 Allergy status to sulfonamides; Z88.1 Allergy status to other antibiotic agents; Z79.890 Hormone replacement therapy; Z79.899 Other long term (current) drug therapy
CPT/HCPCS: 36415; 71046; 80048; 83735; 83880; 84484; 85025; 85379; 85610; 93005; 99285